=== PATIENT | female | born 1980 | race Caucasian/White ===

== ENCOUNTER → 2016-07-17 | Outpatient (CLI) | payer OTHER ==
--- NOTE | 2016-07-17 09:32 | REP ---
CT Head without contrast HISTORY: Visual disturbances COMPARISON: None Small areas of decreased attenuation are present in the basal ganglia. These represent old lacunar infarctions. There is no intraparenchymal hemorrhage, acute infarct, mass or midline shift. The ventricular system is normal in appearance. There is no extra cerebral collection. There is no fracture. The visualized sinuses are clear. 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 Signed by Surinder Curtis MD 07/17/2016 09:23 A
== END ==
LOC: M RAD 06:51
PROVIDERS: ATTEND Nurse Practitioner Adult Health
DX: H53.8 Other visual disturbances (principal); H57.9 Unspecified disorder of eye and adnexa; H52.7 Unspecified disorder of refraction

== ENCOUNTER → 2016-08-03 | Outpatient (REF) | payer OTHER ==
[2016-08-03 14:22] LABS: FOLATE 13.5 NG/ML (>5.4)
[2016-08-03 14:28] LABS: VITAMIN B12 LEVEL 549 PG/ML (247-911)
[2016-08-08 00:06] LABS: ACETYLCHOLINE RCPTOR BINDING A < 0.03 nmol/L (0.00-0.24)
== END ==
LOC: M LABNEURO 10:22
PROVIDERS: ATTEND Psychiatry & Neurology Neurology
DX: G45.9 Transient cerebral ischemic attack, unspecified (principal); G70.9 Myoneural disorder, unspecified

== ENCOUNTER → 2016-09-20 | Outpatient (CLI) | payer OTHER ==
--- NOTE | 2016-09-21 03:48 | REP ---
Clinical: Shortness of breath . Comparison: None . Technique: PA and lateral. Findings: The mediastinum and cardiac silhouette are normal. The lung salazar are clear and without acute consolidation, effusion, or pneumothorax. The skeletal structures are intact and normal. Impression: 1. No acute cardiopulmonary process. Signed by Edwin Dai MD 09/21/2016 03:39 A
== END ==
LOC: M SMT 13:56
PROVIDERS: ATTEND Nurse Practitioner Adult Health
DX: R06.02 Shortness of breath (principal)

== ENCOUNTER → 2016-10-04 | Outpatient (CLI) | payer OTHER ==
--- NOTE | 2016-10-06 16:25 | SLEEPCENT ---
DATE OF PROCEDURE: 10/04/2016 ORDERED BY: Beth Alfred Nocturnal polysomnography was performed for reevaluation of this patient with a history of nonrestorative on multiple medications with an inconclusive home study. 7hours and 44 minutes of data were reviewed. There were 362 minutes of sleep identified. Sleep latency was prolonged at 77 minutes. Rapid eye movement (REM) latency was prolonged at 146 minutes. Once established sleep architecture was fairly good. There were four REM periods appreciated. Overall sleep efficiency was 79%. The EKG showed a sinus rhythm with an average heart rate of 66 beats per minute. EEG showed reasonably normal wave forms for wake and sleep. No focal events were idetified. There were only 3 respiratory events identified of 10 seconds in duration or greater for an apnea-hypopnea index well within normal limits of 0.5. Snoring was noted over the course of the study. Arousals from respiratory events when arousals from snoring were included occurred 1.8 times per hour. Some limb activity was noted, more prominently early in the study but there were two trains of 30 events. Limb movement arousal index was 7.6. IMPRESSION: Mild periodic limb movement disorder (G47.61). Limb movement arousal index 7.6. RECOMMENDATIONS: Interventions to reduce the frequency of arousal from limb activity should improve the quality of the patient's sleep.
== END ==
LOC: M SLEEP 19:28
PROVIDERS: ATTEND Nurse Practitioner Adult Health
DX: G47.61 Periodic limb movement disorder (principal); G47.30 Sleep apnea, unspecified

== ENCOUNTER 2016-11-28 19:24 | Emergency (ER) | payer OTHER ==
[~2016-11-28] VITALS: Ht 170.2 cm; Wt 81.7 kg
[2016-11-28 19:24] VITALS: BP 163/85
[2016-11-28] MEDS ORDERED: HYDR-3363 (19:31)
[2016-11-28] MEDS ORDERED: CITA20TA4 (19:31)
[2016-11-28] MEDS ORDERED: TRIMETHOBENZAMIDE HCL INJ 200 MG/2 ML VIAL (J3250) IM ONE (21:15)
[2016-11-28] MEDS ORDERED: KETOROLAC 30 MG/ML VIAL (J1885) IV ONE (21:15)
[2016-11-28 21:40] LABS: BASO % 0.3 % (0.0-1.0); EOS # 0.1 K/mm3 (0.0-0.50); EOS % 0.5 % (0.0-3.0); LARGE UNSTAINED CELL # 0.3 K/mm3 (0.0-0.4); LARGE UNSTAINED CELL % 1.9 % (0.0-4.0); LYMPH # 2.3 K/mm3 (1.5-4.5); LYMPH % 17.2 % (24.0-44.0); MEAN CORPUSCULAR HEMOGLOBIN 28.1 pg (27.0-33.0); MEAN CORPUSCULAR HGB CONC 33.8 g/dl (32.0-36.5); MEAN CORPUSCULAR VOLUME 83.1 fl (80.0-96.0); MONO # 0.7 K/mm3 (0.0-0.8); MONO % 4.8 % (0.0-5.0); NEUTROPHILS # 10.2 K/mm3 (1.8-7.7); NEUTROPHILS % 75.3 % (36.0-66.0); PLATELET COUNT, AUTOMATED 350 k/mm3 (150-450); WHITE BLOOD COUNT 13.5 K/mm3 (4.0-10.0)
[2016-11-28 21:42] LABS: CONTROL LINE HCG INT CTR LINE PRESENT
[2016-11-28 21:50] LABS: AMYLASE 57 U/L (25-115); ANION GAP 7 MEQ/L (8-16); BLOOD UREA NITROGEN 16 MG/DL (7-18); CALCIUM LEVEL 9.3 MG/DL (8.5-10.1); CARBON DIOXIDE LEVEL 24 MEQ/L (21-32); CHLORIDE LEVEL 108 MEQ/L (98-107); GLOMERULAR FILTRATION RATE > 60.0 (>60); GLUCOSE, FASTING 78 MG/DL (70-105); POTASSIUM SERUM 3.7 MEQ/L (3.5-5.1); SODIUM LEVEL 139 MEQ/L (136-145)
[2016-11-28] MEDS ORDERED: NS 1,000 ML IV ONE (22:30)
--- NOTE | 2016-11-28 23:40 | REPUSA ---
CLINICAL HISTORY: Left flank pain. TECHNIQUE: Multiple axial, coronal, sagittal CT images were obtained through the abdomen and pelvis without administration of oral or IV contrast material. COMMENTS: The liver is of uniform attenuation without mass or defect. There is no intra or extrahepatic biliar y ductal dilatation. The spleen is normal. The gallbladder is contracted. The pancreas is of johnny l contour and attenuation characteristics. There is no evidence of adrenal mass. The kidneys are normal in size, shape and configuration. 3.5 mm calculus is noted at the left UVJ pr oducing mild hydroureteronephrosis. There is a punctate non-obstructing calculus noted in the lower pole of the left kidney. There are no calculi noted in the right kidney. There is no evidence for appendicitis. There is no bowel wall thickening. No evidence for small or large bowel obstruction. There is no evidence of abdominal ascites or lymphadenopathy. There is no evidence of intrinsic or extrinsic bladder mass. There is no pelvic ascites or lymphaden opathy. The uterus is markedly enlarged and bulky. This is compatible with diffuse adenomyosis versus myomat osis. Consider follow-up with pelvic ultrasound or pelvic MRI. Small hiatal hernia is present. Images of the lung bases show no evidence of pleural or parenchymal mass. There are no pleural effus ions. The bony structures are free of lytic or blastic lesions. IMPRESSION: 1. The gallbladder is contracted. 2. 3.5 mm calculus is noted at the left UVJ producing mild hydroureteronephrosis. There is a puncta te non-obstructing calculus noted in the lower pole of the left kidney. 3. The uterus is markedly enlarged and bulky. This is compatible with diffuse adenomyosis versus my omatosis. Consider follow-up with pelvic ultrasound or pelvic MRI. 4. Small hiatal hernia is present.
[2016-11-28] MEDS ORDERED: NAPR500T PO (23:53)
[2016-11-28] MEDS ORDERED: FLOM5CAP PO (23:53)
[2016-11-28] MEDS ORDERED: TIGA300C2 PO (23:53)
[2016-11-28] MEDS ORDERED: NORCOTAB PO (23:53)
[2016-11-29] MEDS ORDERED: NORCO, ANEXSIA 5/325MG TABLET (HYDROcodone/ACETAMINOPHEN) PO ONE
[2016-11-29] MEDS ORDERED: TAMSULOSIN 0.4 MG CAP PO ONE
--- NOTE | 2016-11-29 09:05 | ED PDOC ---
Post-Departure Follow-Up radiology report faxed to Tori Burch MD Nov 29, 2016 09:04
[2016-11-29] MEDS ORDERED: ALPR0.5T3 (10:41)
[2016-11-29] MEDS ORDERED: IBUP-1022 PO (10:41)
[2016-11-29] MEDS ORDERED: BUSP15TA47 PO (10:41)
[2016-11-29] MEDS ORDERED: NAPR500T3 PO (10:41)
== END 2016-11-29 00:12 | disposition home or self-care (01) ==
LOC: M ED 19:24
DX: N20.1 Calculus of ureter (principal); N13.30 Unspecified hydronephrosis; R11.0 Nausea; N85.2 Hypertrophy of uterus; D25.9 Leiomyoma of uterus, unspecified; K44.9 Diaphragmatic hernia without obstruction or gangrene; F41.9 Anxiety disorder, unspecified; Z87.891 Personal history of nicotine dependence; Z79.899 Other long term (current) drug therapy
CPT/HCPCS: 74176; 80048; 81001; 82150; 83690; 84703; 85025; 86140; 87088; 87186; 96372; 96374; 99283; J1885; J3250

== ENCOUNTER 2016-11-29 10:35 | Emergency (ER) | payer OTHER ==
[~2016-11-29] VITALS: Ht 170.2 cm; Wt 81.8 kg
[~2016-11-29 10:35] MED LIST: CITA20TA4; FLOM5CAP PO; HYDR-3363; NAPR500T PO; NORCOTAB PO; TIGA300C2 PO
[2016-11-29 10:36] VITALS: BP 148/88
[2016-11-29] MEDS ORDERED: NAPR500T3 PO (10:41)
[2016-11-29] MEDS ORDERED: IBUP-1022 PO (10:41)
[2016-11-29] MEDS ORDERED: BUSP15TA47 PO (10:41)
[2016-11-29] MEDS ORDERED: ALPR0.5T3 (10:41)
== END 2016-11-29 11:54 | disposition home or self-care (01) ==
LOC: M ED 10:35
DX: N20.1 Calculus of ureter (principal); E66.9 Obesity, unspecified; F99 Mental disorder, not otherwise specified; Z79.899 Other long term (current) drug therapy; Z87.891 Personal history of nicotine dependence; Z84.1 Family history of disorders of kidney and ureter

== ENCOUNTER → 2017-01-01 | Outpatient (CLI) | payer OTHER ==
[~2017-01-01] MED LIST changes: +ALPR0.5T3; +BUSP15TA47 PO; +IBUP-1022 PO; +NAPR500T3 PO
--- NOTE | 2017-01-01 10:54 | REP ---
Right foot series: Two views. History: Pain in the right foot. Findings: AP and lateral views of the right foot show overall mineralization. No erosive changes seen. No fracture is noted. Bones joints and soft tissues are unremarkable. Impression: Negative right foot radiographs. Signed by Rayo Oliver MD 01/01/2017 12:15 P
== END ==
LOC: M RAD 09:46 → M LAB 09:46
PROVIDERS: ATTEND Nurse Practitioner Adult Health
DX: M79.671 Pain in right foot (principal)

== ENCOUNTER 2018-02-26 11:00 | Emergency (ER) | payer OTHER | END 2018-02-26 12:54 | disposition home or self-care (01) | LOC: M ED 11:00 | DX: J02.9 Acute pharyngitis, unspecified (principal); F41.9 Anxiety disorder, unspecified; F17.200 Nicotine dependence, unspecified, uncomplicated; Z20.828 Contact with and (suspected) exposure to other viral communicable diseases; Z79.899 Other long term (current) drug therapy | CPT/HCPCS: 87880 ==

== ENCOUNTER → 2019-09-02 | Outpatient (CLI) | payer OTHER ==
[~2019-09-02] MED LIST changes: -CITA20TA4; +CITA20TA6; +FLOM0.4C39 PO; -FLOM5CAP PO; +HYDR-3715 PO; +MAGICMW MT; +NAPR-837 PO; +NAPR-885 PO; -NAPR500T PO; -NAPR500T3 PO; -NORCOTAB PO
[2019-09-02 14:27] LABS: PROLACTIN 7.3 NG/ML
[2019-09-02 15:08] LABS: FREE T4 0.95 NG/DL (0.76-1.46); THYROID STIMULATING HORMONE 1.84 uIU/ML (0.358-3.740)
== END ==
LOC: M LAB 13:05
PROVIDERS: ATTEND Obstetrics & Gynecology
DX: N92.6 Irregular menstruation, unspecified (principal)

== ENCOUNTER → 2019-09-17 | Outpatient (CLI) | payer OTHER ==
--- NOTE | 2019-09-17 15:55 | REPMRS ---
Patient History The patient states she had a clinical breast exam in August 2019. No known family history of cancer. 3D TOMOSYNTHESIS WAS PERFORMED. [facility] lifetime risk for breast cancer is 10.3%. VOLPARA DENSITY B. Digital Woman Screen Mammo: September 17, 2019 - Exam #: [id number] Bilateral CC and MLO view(s) were taken. Technologist: Karla Child Technologist FINDINGS: The breast tissue is heterogeneously dense. This may lower the sensitivity of mammography. There is no evidence of cancer on this mammogram. Assessment: BI-RADS/ACR category 2 mammogram. Benign Findings. Recommendation Routine screening mammogram of both breasts in 1 year (for women over age 40). This mammogram was interpreted with the aid of an FDA-approved computer-aided dectection system. Electronically Signed By: Richard Hensley MD 09/17/19 [id number]
--- NOTE | 2019-09-18 02:39 | REP ---
Clinical: Irregular menstrual cycles. Technique: Transabdominal pelvic ultrasound followed by transvaginal examination for better evaluation of the endometrium and adnexa with color Doppler evaluation of the ovaries. Findings: Bladder is unremarkable and measures 6.8 x 6.3 x 4.0 cm. Heterogeneous anteverted uterus measuring 8.9 x 4.9 x 6.3 cm. Endometrial complex measures 5 mm thickness. No discrete uterine or endometrial abnormality appreciated. Bilateral ovaries are normal in appearance and vascularity without torsion. Right ovary measures 2.8 x 1.7 x 1.5 cm (RI 0.48) with multiple follicles noted. Left ovary measures 2.2 x 1.0 x 1.8 cm (flow detected) with multiple follicles noted. No pelvic fluid or adnexal mass lesion. Impression: Normal pelvic ultrasound.
== END ==
LOC: M WHC 13:50
PROVIDERS: ATTEND Obstetrics & Gynecology
DX: Z12.31 Encounter for screening mammogram for malignant neoplasm of breast (principal); N92.6 Irregular menstruation, unspecified

== ENCOUNTER → 2019-10-27 | Outpatient (CLI) | payer OTHER ==
[~2019-10-27] MED LIST changes: -CITA20TA6; +CITA20TA6 PO; +HYDR-643 PO
== END ==
LOC: M LABSMTC 10:29
PROVIDERS: ATTEND Anesthesiology
DX: Z01.818 Encounter for other preprocedural examination (principal); Z11.59 Encounter for screening for other viral diseases
CPT/HCPCS: C9803; U0003

== ENCOUNTER 2019-10-30 11:35 | Day surgery (SDC) | payer OTHER ==
[~2019-10-30] VITALS: Ht 167.6 cm; Wt 75.5 kg
[2019-10-30] MEDS ORDERED: LR 1,000 ML IV ONE (11:45)
[2019-10-30] MEDS ORDERED: ONDANSETRON 4MG/2ML VIAL As Ordered ONE (12:35)
[2019-10-30] MEDS ORDERED: LIDOCAINE 2% 100MG/5ML SDV (FOR ANES.) As Ordered ONE (12:35)
[2019-10-30] MEDS ORDERED: dexameTHASONE 4 MG/ML 1ML VIAL (J1100 PER 1MG) As Ordered ONE (12:35)
[2019-10-30] MEDS ORDERED: ACETAMINOPHEN 1000MG 100ML IV BTL (OFIRMEV) (J0131 PER 10MG) As Ordered ONE (12:35)
[2019-10-30] MEDS ORDERED: KETOROLAC 60MG 2ML VIAL As Ordered ONE (12:35)
[2019-10-30] MEDS ORDERED: propofoL 200 MG/20 ML VIAL As Ordered ONE (12:35)
[2019-10-30] MEDS ORDERED: fentaNYL 100 MCG/2 ML INJECTION (J3010) As Ordered ONE ×2 (12:36→15:00)
[2019-10-30] MEDS ORDERED: MIDAZOLAM INJ 2MG/2ML VIAL (J2250 PER 1MG) As Ordered ONE (12:36)
[2019-10-30] MEDS ORDERED: IBUPROFEN 600MG TAB As Ordered ONE (15:34)
[2019-10-30] MEDS ORDERED: LR 1,000 ML IV SCH ×2 (15:45)
[2019-10-30] MEDS ORDERED: IBUPROFEN 600MG TAB PO PRN (15:45)
[2019-10-30] MEDS ORDERED: fentaNYL 100 MCG/2 ML INJECTION (J3010) IV PRN (15:45)
[2019-10-30] MEDS ORDERED: NORCO, ANEXSIA 5/325MG TABLET (HYDROcodone/ACETAMINOPHEN) PO PRN (15:45)
[2019-10-30] MEDS ORDERED: ONDANSETRON 4MG/2ML VIAL IV PRN (15:45)
[2019-10-30] MEDS ORDERED: oxyCODONE 5MG TAB PO PRN (15:45)
[2019-10-30] MEDS ORDERED: HYDROMORPHONE HCL 0.5 MG/ 0.5 ML SYRINGE (J1170 PER 1) IV PRN (15:45)
[2019-10-30 16:30] VITALS: BP 119/60
--- NOTE | 2019-11-06 12:03 | RO ---
DATE OF PROCEDURE: 10/30/2019 PREPROCEDURE DIAGNOSES: Bleeding, pain and desire for an NEXPLANON removal (patient has a tubal, had it for cycle control, which it was not ultimately effective). POSTPROCEDURE DIAGNOSES: Bleeding, pain and desire for an NEXPLANON removal. (patient has a tubal, had it for cycle control, which it was not ultimately effective). PROCEDURE: Dilation and curettage, hysteroscopy, NovaSure ablation and left arm NEXPLANON removal. SURGEON: Dr. July Olivera. MANNEQUIN MOLD MAKER: None. ANESTHESIA: General endotracheal anesthesia. FINDINGS: As expected. DESCRIPTION OF PROCEDURE: Tash was brought to the operating room where sufficient general endotracheal anesthesia was given and she was prepped and draped into position in the usual fashion but with the left arm left accessible for the latter portion of the case. Then starting with the dilation and curettage ablation, attention was turned to the vagina. The cervix was grasped with a single tooth tenaculum, bladder emptied, the uterus sounded to 3.5 in the cervix and 9.5 in the uterus giving a length of 6 which was subsequently measured at 4.5. But at this point, we only had a length of 6 and the cervix was dilated in order to allow introduction of the hysteroscope which was used to visualize the endometrial cavity. There was a very tiny lingular polyp posteriorly with a very benign appearance. Normal ostia, normal endometrial contour. No evidence of significant lesion. Curettage was, of course, carried out and then the NovaSure ablative device placed. Of course, there are pictures to document our findings. But with the NovaSure ablative device placed. We had a length set at 6 and width was measured at 4.5. We had an uncomplicated cavity test as expected, given the normal view within the endometrial cavity by the hysteroscope. After both those checks showed it was safe, we went ahead and did NovaSure ablation in an uncomplicated fashion. Following the NovaSure ablation, attention was turned to the left arm, which was then manipulated to give good access to her NEXPLANON. Prepped, draped and then using pressure proximal to the arm and of the NEXPLANON to elevate the distal portion. Carefully using the #11 blade to cut the skin and the scar tissue around the actual device. Then used hemostat to carefully secure the device and deliver it. Once the NEXPLANON was delivered and intact, there was a very small wound. We managed, using the mini hemostats, which were in the OR, so it was only about a 2-3 mm wound. This did not need to be stitched. We went ahead and used the Steri-Strips for a dressing there and the procedure was ended. ESTIMATED BLOOD LOSS: For both procedures combined about 3 mL. FLUID REPLACEMENT: Crystalloid. COMPLICATIONS: None. CONDITION AND DISPOSITION: Tash tolerated the procedure well and was recovering in the recovery room in good condition.
== END 2019-10-30 16:42 | disposition home or self-care (01) ==
LOC: M SDC 11:35
PROVIDERS: ATTEND Obstetrics & Gynecology
DX: N93.9 Abnormal uterine and vaginal bleeding, unspecified (principal); R10.2 Pelvic and perineal pain; Z30.46 Encounter for surveillance of implantable subdermal contraceptive; N84.0 Polyp of corpus uteri; F41.9 Anxiety disorder, unspecified; Z79.899 Other long term (current) drug therapy; F17.218 Nicotine dependence, cigarettes, with other nicotine-induced disorders
CPT/HCPCS: 11976; 58563; 88305; J0131; J1100; J1885; J2250; J2405; J3010

== ENCOUNTER → 2022-08-17 | Outpatient (REF) | payer OTHER | LOC: M SFHCWAGY 17:09 | PROVIDERS: ATTEND Nurse Practitioner Family | DX: Z11.51 Encounter for screening for human papillomavirus (HPV) (principal) ==

== ENCOUNTER → 2022-11-27 | Outpatient (CLI) | payer OTHER | LOC: M WHC 10:19 | PROVIDERS: ATTEND Nurse Practitioner Family | DX: Z12.31 Encounter for screening mammogram for malignant neoplasm of breast (principal) ==

== ENCOUNTER → 2023-08-22 | Outpatient (CLI) | payer OTHER | LOC: M WHC 11:00 | PROVIDERS: ATTEND Nurse Practitioner Family | DX: Z12.31 Encounter for screening mammogram for malignant neoplasm of breast (principal); Z53.9 Procedure and treatment not carried out, unspecified reason ==

== ENCOUNTER → 2023-11-29 | Outpatient (CLI) | payer OTHER | LOC: M WHC 10:07 | PROVIDERS: ATTEND Nurse Practitioner Family | DX: Z12.31 Encounter for screening mammogram for malignant neoplasm of breast (principal) ==

== ENCOUNTER → 2023-12-20 | Outpatient (CLI) | payer OTHER | LOC: M WHC 09:19 | PROVIDERS: ATTEND Nurse Practitioner Family | DX: R92.8 Other abnormal and inconclusive findings on diagnostic imaging of breast (principal) ==

== ENCOUNTER → 2024-02-26 | Outpatient (CLI) | payer OTHER ==
[2024-02-26 13:32] LABS: BASO # 0.1 10^3/uL (0.0-0.2); EOS # 0.2 10^3/uL (0.0-0.5); EOS % 2.5 % (0.0-3.0); HEMOGLOBIN 14.5 g/dl (12.0-15.5); LYMPH % 37.3 % (24.0-44.0); MEAN CORPUSCULAR HEMOGLOBIN 29.3 pg (27.0-33.0); MEAN CORPUSCULAR VOLUME 88.9 fl (80.0-96.0); MONO # 0.6 10^3/uL (0.0-0.8); MONO % 6.9 % (2.0-8.0); NEUTROPHILS # 4.2 10^3/uL (1.5-8.5); PLATELET COUNT, AUTOMATED 373 10^3/uL (150-450); RED BLOOD COUNT 4.95 10^6/uL (4.00-5.40)
[2024-02-26 13:36] LABS: ALKALINE PHOSPHATASE 71 U/L (35-104); ALT/SGPT 27 U/L (7.0-40); AST/SGOT 10 U/L (<34); BILIRUBIN,TOTAL 0.5 MG/DL (0.3-1.2); BLOOD UREA NITROGEN 12 MG/DL (9-23); CALCIUM LEVEL 9.7 MG/DL (8.5-10.1); CARBON DIOXIDE LEVEL 25 MMOL/L (20-31); CHLORIDE LEVEL 108 MMOL/L (98-107); CHOLESTEROL LEVEL 245 MG/DL (<200); CHOLESTEROL RISK RATIO 4.29 (<5); CREATININE FOR GFR 0.54 MG/DL (0.55-1.30); GLOMERULAR FILTRATION RATE > 60.0 (>58); GLUCOSE, FASTING 84 MG/DL (60-100); LDL CHOLESTEROL 167.2 MG/DL (<100); POTASSIUM SERUM 4.6 MMOL/L (3.5-5.1); SODIUM LEVEL 140 MMOL/L (136-145); THYROID STIMULATING HORMONE 2.552 uIU/ML (0.55-4.78); TOTAL PROTEIN 7.5 G/DL (5.7-8.2); TRIGLYCERIDES LEVEL 104 MG/DL (<150)
[2024-02-26 13:37] LABS: FREE T4 0.96 NG/DL (0.89-1.76)
[2024-02-26 14:01] LABS: HEMOGLOBIN A1c 5.1 % (4.0-6.0)
== END ==
LOC: M PLALAB 11:04
PROVIDERS: ATTEND Student in an Organized Health Care Education/Training Program
DX: Z76.89 Persons encountering health services in other specified circumstances (principal)

== ENCOUNTER → 2024-07-22 | Outpatient (CLI) | payer OTHER | LOC: M WHC 09:09 | PROVIDERS: ATTEND Nurse Practitioner Family | DX: R92.8 Other abnormal and inconclusive findings on diagnostic imaging of breast (principal) ==

== ENCOUNTER → 2024-09-01 | Outpatient (REF) | payer OTHER ==
[~2024-09-01] MED LIST changes: -FLOM0.4C39 PO; +TAMS-18 PO
[2024-09-03 14:37] LABS: HPV APTIMA Not Detected (Not Detected)
== END ==
LOC: M SFHCWAGY 13:00
PROVIDERS: ATTEND Nurse Practitioner Family
DX: Z12.4 Encounter for screening for malignant neoplasm of cervix (principal)